=== PATIENT | female | born 1995 | race Caucasian/White ===

== ENCOUNTER 2024-04-08 14:39 | Inpatient (IN) | payer OTHER, SELFPAY ==
[2024-04-08] VITALS (10 sets, daily range): BP systolic 104–135; BP diastolic 49–80; PULSE 71–116; RESP 16–20; TEMP 36.1–36.9; O2SAT 92–100; BMI 28.0
--- NOTE | 2024-04-08 14:42 | ED.GENADULT ---
HPI - General Adult General Chief complaint: General Medical Stated complaint: low hemoglobin Time Seen by Provider: 04/08/24 15:58 Source: patient Mode of arrival: ambulatory Limitations: no limitations History of Present Illness ED Provider: Dr. Essence Agee HPI narrative: Patient comes to the emergency room complaining of dizziness, multiple syncopal episodes within the last couple of weeks due to anemia. Patient states that about a month ago, the 1st week of March, patient had similar symptoms, was seen at [facility] , patient states she had a colonoscopy done, diagnosed with internal hemorrhoids. Patient states that approximately 2 weeks ago, patient had a hemoglobin of 6.3, receive 1 unit of blood, then patient left AMA since she did not want to stay in the hospital. Now patient presents with the same symptoms. Patient admits that she has been having ongoing rectal bleeding. Related Data Allergies Allergy/AdvReac Type Severity Reaction Status Date / Time No Known Allergies Allergy Verified 04/08/24 14:44 Review of Systems Review of Systems: Constitutional : No Weight loss, No Fever, No Chills, No Night Sweats, No Fatigue, No Malaise ENT/Mouth : No Hearing loss, No Ear Pain, No Nasal Congestion, No Sinus Pain, No Hoarseness, No sore throat, No Rhinorrhea, No Swallowing Difficulty Eyes: No Eye Pain, No Swelling, No Redness, No Foreign Body, No Discharge, No Vision Changes Cardiovascular : No Chest Pain, No SOB, complaining of dyspnea on exertion, palpitations, syncopal episode with exertion Respiratory : No Cough, No Sputum, No Wheezing, No Smoke Exposure, No Dyspnea Gastrointestinal : No Nausea, No Vomiting, No Diarrhea, No Constipation, No abdominal Pain, complaining of rectal bleeding for several months Genitourinary : no irregular bleeding, No Dysuria, No Urinary Frequency, No Hematuria, No Urinary Incontinence, No Urgency, No Flank Pain, No Urinary Flow Changes, No Hesitancy Musculoskeletal : No joint pain, No Myalgias, No Joint Swelling Skin : No Skin Lesions, No rash Neuro : No Weakness, No Numbness, No Paresthesias, No Loss of Consciousness, No Dizziness, No Headache Psych : No Anxiety/Panic, No Depression, No SI/HI/AH/VH, No Social Issues, Heme/Lymph: No Bruising, No Bleeding,No Lymphadenopathy Endocrine : No Polyuria, No Polydipsia, No Temperature Intolerance PMFSH Social History Social History Advance Directives: No Advance Directives Information Provided: No Physical Exam ED Vital Signs: Vital Signs - 24 hr 04/08/24 14:42 04/08/24 16:21 Temperature 98 F Pulse Rate 116 H 87 Respiratory Rate 19 16 Blood Pressure 117/61 118/57 L Pulse Oximetry 100 100 Oxygen Delivery Method Room Air Room Air BMI result Body Mass Index 28.0 Const Other: Appearance: Alert. Oriented X3. No acute distress. Eyes: Pupils equal, round and reactive to light. ENT: Pharynx normal. Neck: Normal inspection. Neck supple. No lymph nodes noted. No crepitus CVS: Normal heart rate and rhythm. Pulses normal. Normal S1 and S2 Respiratory: No respiratory distress. Breath sounds normal. No Wheezing. No rales Abdomen: Soft and nontender. No rigidity. No distention. Skin: Skin warm and dry. Pale Normal skin turgor. Extremities: No lower extremity edema. No Lacerations. No Rash Neuro: Oriented X 3. No motor deficit. No sensory deficit. Moving all extremities. No slurred speech. CN 2 through 12 grossly intact Psych: calm, cooperative, normal affect Course Course Course Narrative: This is an RME: Additional HPI, ROS, PE not included below will be deferred to primary provider. RME assessment and note performed by: Eli Jack PA-C This is a 89-[id number]-female, with a hx of bleeding hemorrhoids, presenting to the ER with a complaint of dizziness, syncope, palpitations. Reporting that since January she has had problems with hemoglobin count due to internal bleeding hemorhoids. She has had 2 blood transfusions in the last month on march 12 and march 27. Plan: Labs, EKG, further ER evaluation needed. Critical lab of hemoglobin hematocrit at 5.6/18.2. Discussed with my attending physician, Dr. Yap, patient will be brought back, 2 units of PRBC ordered. Medical Decision Making Medical Decision Making MDM Narrative: -my interpretation of labs, hemoglobin 5.6, hematocrit 18.2, lower than 2 weeks ago when she was seen at [facility]. Patient has ongoing rectal bleeding. -concerning that patient has had multiple syncopal episodes. Discussed with the patient that last time that she was in [facility] she lived against medical advice, patient states that this time she feels very sick and is agreeable to stay for the course of the treatment -I discussed the patient with Dr. Green from General surgery, I was asked to contact GI, I spoke with Dr. Andrews who referred me back to General surgery. -I discussed the patient with Dr. Segura from the Medicine team. Patient will be admitted to be treated for the anemia. They will get a consult for General surgery with either Dr. Mann or Dr. Crowder. Also, considering a consult with IR for possible embolization. -the above-mentioned was discussed with the patient, agreeable with plan. -I discussed with the patient the risks versus benefits of a blood transfusion, patient states that she has had plenty of blood transfusions within the last month, agreeable to proceed with the transfusion. Consent signed -at time of admission, vitals stable, blood pressure 118/57, heart rate 87, temperature 98 degrees F, oxygen saturation 100% on room air. Patient awake and alert Differential Diagnosis Differential Diagnoses: The differential diagnosis associated with the presentation includes (Blood loss anemia, iron deficiency) Admission/Observation Consideration of admission/observation: Escalation of care including admission/observation considered Consult Healthcare Provider Management of the patient was discussed with: Hospitalist and Seed Specialist Lab Data MDM Lab Attestation statement: I reviewed the patient's lab results. 04/08/24 14:50 04/08/24 14:50 Labs: Lab Results 04/08/24 Range/Units 14:50 WBC 7.2 (4.8-10.8) X10*3/uL RBC 2.29 L (4.20-5.50) X10*6/uL Hgb 5.6 L* (12.0-16.0) g/dl Hct 18.2 L* (37.0-47.0) % MCV 79.5 L (80.0-98.0) fL MCH 24.5 L (27.0-33.0) pg MCHC 30.8 L (31.0-35.0) g/dl RDW 17.7 H (11.0-16.0) % Plt Count 428 H (160-400) X10*3/uL MPV 10.3 (9.4-12.3) fL Immature Gran % (Auto) 0.4 (0.0-0.4) % Neut % (Auto) 63.3 (45-73) % Lymph % (Auto) 31.1 (20-40) % [place] % (Auto) 4.2 (2-11) % Eos % (Auto) 0.7 (0-4) % Baso % (Auto) 0.3 (0-2) % Lymph # (Auto) 2.2 (1.2-4.9) X10*3/uL [place] # (Auto) 0.3 (0.1-1.2) X10*3/uL Eos # (Auto) 0.1 (0.0-0.4) X10*3/uL Baso # (Auto) 0.0 (0.0-0.2) X10*3/uL Abs Immat Gran (auto) 0.03 (0.00-0.03) X10*3/uL Absolute Neuts (auto) 4.6 (2.0-8.3) x10*3/uL Absolute Nucleated RBC 0.000 (0.0-0.012) X10*3/uL Nucleated RBC % (auto) 0.0 (0.0-0.2) /100WBC PT 12.9 (11.1-13.3) SEC INR 1.1 (0.9-1.1) APTT 26.7 (26.0-36.8) SEC Sodium 139 (135-145) mmol/L Potassium 4.0 (3.3-5.1) mmol/L Chloride 110 H (96-108) mmol/L Carbon Dioxide 21 L (22-29) mmol/L Anion Gap 12 (12-20) BUN 14 (9-16) mg/dL Creatinine 0.78 (0.5-1.4) mg/dL Estim Creat Clear Calc 109.6 Estimated GFR > 60 Random Glucose 102 (60-115) mg/dL Calcium 9.6 (8.4-10.2) mg/dL Magnesium 1.9 (1.6-2.6) mg/dL Total Bilirubin 0.2 (0.0-1.0) mg/dL Direct Bilirubin < 0.2 (0.0-0.5) mg/dL AST 9 (5-31) U/L ALT 8 (0-31) U/L Alkaline Phosphatase 59 (39-117) U/L Troponin I High Sens < 2.7 (<3.5-17.0) ng/L Total Protein 7.1 (6.5-8.0) g/dL Albumin 4.5 (3.5-5.0) g/dL Blood Type O Positive Antibody Screen NEGATIVE Crossmatch See Detail Independent Interpretation I performed an independent interpretation of an: EKG (Interpretation of EKG: Sinus tachycardia, heart rate 103, no ST segment depression or elevation, no T-wave inversion, QTC 419) Critical Care Time Critical Care Time Critical Care Time: Yes Total Critical Care Time: 75 Attestation: I have personally provided critical care time. Time includes review of lab data, radiology results, discussion with consultants, and monitoring for potential decompensation. Intervention performed as documented. Discharge Plan Discharge Clinical Impression: ABLA (acute blood loss anemia), Hemorrhoids, internal Patient Disposition: Admitted As Inpatient Print Language: Gambian
--- NOTE | 2024-04-08 14:51 | ECG_ITS ---
Test Reason : SYNCOPE, PALPITATIONS Blood Pressure : / mmHG Vent. Rate : 103 BPM Atrial Rate : 103 BPM P-R Int : 144 ms QRS Dur : 076 ms QT Int : 320 ms P-R-T Axes : 070 045 039 degrees QTc Int : 419 ms Sinus tachycardia Otherwise normal ECG No previous ECGs available Referred By: Eli Jack Electronically Signed By:LAYA ROSARIO
[2024-04-08 14:57] LABS: MANUAL DIFF FLAG NO
[2024-04-08 15:01] LABS: Basophils Percent Auto 0.3 % (0-2); Eosinophils Absolute Auto 0.1 X10*3/uL (0.0-0.4); Eosinophils Percent Auto 0.7 % (0-4); Imm Gran Abs Auto 0.03 X10*3/uL (0.00-0.03); Imm Gran Pct Auto 0.4 % (0.0-0.4); Lymphocytes Absolute Auto 2.2 X10*3/uL (1.2-4.9); Lymphocytes Percent Auto 31.1 % (20-40); Mean Corpuscular HGB Conc 30.8 g/dl (31.0-35.0); Mean Corpuscular Hemoglobin 24.5 pg (27.0-33.0); Mean Corpuscular Volume 79.5 fL (80.0-98.0); Mean Platelet Volume 10.3 fL (9.4-12.3); Monocytes Absolute Auto 0.3 X10*3/uL (0.1-1.2); Monocytes Percent Auto 4.2 % (2-11); Neutrophils Absolute Auto 4.6 x10*3/uL (2.0-8.3); Neutrophils Percent Auto 63.3 % (45-73); Platelet Count 428 X10*3/uL (160-400); Red Blood Count 2.29 X10*6/uL (4.20-5.50); Red Cell Distribution Width 17.7 % (11.0-16.0); White Blood Count 7.2 X10*3/uL (4.8-10.8)
[2024-04-08 15:08] LABS: INTERNATIONAL NORM RATIO 1.1 (0.9-1.1); Prothrombin Time 12.9 SEC (11.1-13.3)
[2024-04-08 15:10] LABS: Hematocrit 18.2 % (37.0-47.0); Hemoglobin 5.6 g/dl (12.0-16.0)
[2024-04-08 15:11] LABS: Partial Thromboplastin Time 26.7 SEC (26.0-36.8)
[2024-04-08 15:14] LABS: Alanine Aminotransferase 8 U/L (0-31); Albumin Level 4.5 g/dL (3.5-5.0); Alkaline Phosphatase 59 U/L (39-117); Anion Gap 12 (12-20); Aspartate Amino Transferase 9 U/L (5-31); Bilirubin Direct < 0.2 mg/dL (0.0-0.5); Bilirubin Total 0.2 mg/dL (0.0-1.0); Blood Urea Nitrogen 14 mg/dL (9-16); Calcium 9.6 mg/dL (8.4-10.2); Carbon Dioxide 21 mmol/L (22-29); Chloride 110 mmol/L (96-108); Creatinine Clr Calc Pharmacy 109.6; Estimated Glomerular Filt Rate > 60; Glucose Random 102 mg/dL (60-115); Magnesium 1.9 mg/dL (1.6-2.6); Sodium 139 mmol/L (135-145); Total Protein 7.1 g/dL (6.5-8.0)
[2024-04-08 16:51] LABS: Troponin-I High Sensitivity < 2.7 ng/L (<3.5-17.0)
--- NOTE | 2024-04-08 16:52 | PC.NURSE ---
18g IV Access established in left AC. Ready for transfusion. Consent for blood transfusion signed. Plan to receive 2 units of RBCs for low Hemoglobin/Hematocrit. Dr. Agee spoke with patient.
--- NOTE | 2024-04-08 17:14 | P.HPHOSP_ITS ---
History of Present Illness Date of Service: 04/08/24 Chief Complaint: Syncope 28-year-old female patient recently diagnosed to have bleeding hemorrhoids, with no other significant past medical history , as per patient she noted to have rectal bleed since January, and was admitted to [facility], for anemia, received 2 units of packed RBC, was evaluated by Gastroenterology and surgery underwent colonoscopy and was diagnosed to have internal and external hemorrhoids, and was recommended outpatient follow-up with General surgery in June, patient was discharged home on stool softeners, iron supplement and rectal cream, however in March patient noted to have recurrent episodes of rectal bleeding was re-evaluated at [facility] received 2 units of packed RBC, and again on March 27 received 1 unit of packed RBC , patient left the hospital AMA, today patient presented to emergency room due to lightheadedness, nausea, palpitations, shortness of breath and syncopal episode witnessed by boyfriend and daughter, patient denied head injury, she continued to have on and off rectal bleed without associated abdominal pain, constipation or straining her stools are soft since she is using stool softeners, denies pain, no fevers, no chills, no nauseano vomitingtolerating dietno other acute issues. In ED patient noted to have a hemoglobin of 5.6 hematocrit 18.2 platelet count of 428, low MCV, INR 1.1 sodium 139, bicarb 21 stable renal function, iron studies consistent with iron deficiency with iron 7, saturation 2% and TIBC 357, ferritin pending, normal albumin and total protein, 2 units of packed RBC ordered in ED. Patient being admitted to [facility] with a diagnosis of acute blood loss anemia. Review of Systems 2 Review of Systems: General no headache ,no fever chills. Neuro lightheadedness and syncope CVS no chest pain, +palpitation and shortness of breath. Respiratory no cough Gastrointestinal no nausea no vomiting, no abdominal pain Musculoskeletal no pain no urgency, no frequency Skin no rash All other system reviewed and negative PMFSH Pertinent family history: Parents are alive mother has lupus, father has diabetes, no family history of colon cancer Social History Household Members: Significant Other and Children Do you presently have visiting nurse or other home services: No Patient Tobacco Use Status: Never used Tobacco Use of substances other than those prescribed or required for medical reasons: No Do you feel safe in your current relationship?: Yes Advance Directives: No Advance Directives Information Provided: No Do you have a plan to hurt others: No Plan Nutrition Risks: No Nutritional Risk Patient : No Meds Allergies Allergy/AdvReac Type Severity Reaction Status Date / Time No Known Allergies Allergy Verified 04/08/24 14:44 Home Medications ?Medication ?Instructions ?Recorded ?Confirmed ?Last Taken ?Type docusate sodium 100 mg capsule 100 mg PO BID 04/08/24 04/08/24 04/07/24 History ferrous sulfate 325 mg (65 mg 325 mg PO Q48H 04/08/24 04/08/24 04/07/24 History iron) tablet,delayed release medroxyprogesterone 150 mg/mL 150 mg IM [id number] 04/08/24 04/08/24 01/14/24 History intramuscular suspension polyethylene glycol 3350 17 17 g PO BID PRN Constipation 04/08/24 04/08/24 Unknown History gram/dose oral powder Physical Exam 2 Vital Signs and Narrative: Vital Signs: Last Vital Signs Temp 98 F 04/08/24 14:42 Pulse 87 04/08/24 16:21 Resp 16 04/08/24 16:21 BP 118/57 L 04/08/24 16:21 Pulse Ox 100 04/08/24 16:21 O2 Del Method Room Air 04/08/24 16:21 BMI result Body Mass Index 28.0 Const: Other: General awake alert x3, in no acute distress. HEENT anicteric sclera, pale conjunctiva Neck supple no JVD. CVS regular rate rhythm, Respiratory lungs clear to auscultation, no respiratory distress, no wheeze, no rhonchi. Gastrointestinal abdomen soft, non tender, bowel sounds audible, no guarding, no rigidity. Extremities no edema. Neuro non focal Skin no rash/pallor Psych appropriate affect Results Labs 04/08/24 14:50 04/08/24 14:50 Labs: Laboratory Results - last 24 hr 04/08/24 14:50 MCV 79.5 L MCH 24.5 L MCHC 30.8 L RDW 17.7 H Plt Count 428 H MPV 10.3 Immature Gran % (Auto) 0.4 Neut % (Auto) 63.3 Lymph % (Auto) 31.1 [place] % (Auto) 4.2 Eos % (Auto) 0.7 Baso % (Auto) 0.3 Lymph # (Auto) 2.2 [place] # (Auto) 0.3 Eos # (Auto) 0.1 Baso # (Auto) 0.0 Abs Immat Gran (auto) 0.03 Absolute Neuts (auto) 4.6 Absolute Nucleated RBC 0.000 Nucleated RBC % (auto) 0.0 PT 12.9 INR 1.1 APTT 26.7 Anion Gap 12 Estim Creat Clear Calc 109.6 Estimated GFR > 60 Random Glucose 102 Calcium 9.6 Magnesium 1.9 Total Bilirubin 0.2 Direct Bilirubin < 0.2 AST 9 ALT 8 Alkaline Phosphatase 59 Troponin I High Sens < 2.7 Total Protein 7.1 Albumin 4.5 Blood Type O Positive Antibody Screen NEGATIVE Crossmatch See Detail Assessment and Plan (1) Hemorrhoids, internal: Status: Acute (2) ABLA (acute blood loss anemia): Status: Acute Plan 28-year-old female with history of bleeding hemorrhoids presented with syncopal episode and rectal bleed. Syncope likely due to anemia, tele monitor showed no arrhythmia, EKG showed sinus tachycardia, otherwise no acute ischemic change, check orthostatic BP , monitor in telemetry and treat anemia. Acute blood loss anemia due to rectal bleed, recently diagnosed to have internal and external hemorrhoids will transfuse 2 units of packed RBC, follow CBC avoid constipation, add stool softeners, recommend high-fiber diet, Consult general surgery for possible banding procedure versus embolization by IR. Iron studies consistent with iron deficiency due to acute blood loss, will place on iron supplements/give IV iron infusion. Follow CBC DVT prophylaxis low risk , avoid blood thinners, placed on compression boots Full code In my clinical judgment patient need two night inpatient hospitalization for management of acute blood loss anemia, requiring blood transfusion and expert consultation. Quality Stroke Does the patient have a stroke diagnosis?: No VTE Prior VTE?: No VTE Risk Level:: Medical - low VTE Device Contraindication: N/A - Device Ordered VTE Drug Contraindication: Treatment Not Indicated
[2024-04-08 17:31] LABS: Iron 7 mcg/dL (30-160); Percent Iron Saturation 2 % (15-50); Total Iron Binding Capacity 357 mcg/dL (228-428); Unsaturated Iron Binding 350 ug/dL
[2024-04-08 17:45] LABS: Ferritin 3 ng/mL (10-122)
--- NOTE | 2024-04-08 17:47 | PHA.MEDREC ---
Pharmacy Consult ? Medication Reconciliation Pharmacy has completed the medication reconciliation. Spoke to patient and confirmed medication list.
[2024-04-08] MEDS: Docusate Sodium 100 MG CAPSULE PO (22:02)
[2024-04-09] VITALS: BP 106/70; PULSE 82; RESP 18; TEMP 36.4; O2SAT 100
[2024-04-09 01:02] VITALS: BP 130/71; PULSE 74; RESP 18; TEMP 36.8; O2SAT 100
[2024-04-09 01:17] VITALS: BP 130/71; PULSE 76; RESP 18; TEMP 36.8
--- NOTE | 2024-04-09 11:32 | P.DS_ITS ---
DS: Providers Provider Date of Service: 04/09/24 Date of admission: 04/08/24 17:21 Primary care physician: Mer Sánchez MD Consults: 04/08/24 18:02 Consult to General Surgery Routine Consulting Provider: Renee Green Reason for consultation: internal hemorrhoids/anemia Has provider been notified: No DS: Diagnosis Discharge Diagnosis (1) Hemorrhoids, internal: Status: Acute (2) ABLA (acute blood loss anemia): Status: Acute DS: Summary Hospital Course Hospital Course: History of presenting illness: Date of Service: 04/08/24 Chief Complaint: Syncope 28-year-old female patient recently diagnosed to have bleeding hemorrhoids, with no other significant past medical history , as per patient she noted to have rectal bleed since January, and was admitted to [facility], for anemia, received 2 units of packed RBC, was evaluated by Gastroenterology and surgery underwent colonoscopy and was diagnosed to have internal and external hemorrhoids, and was recommended outpatient follow-up with General surgery in June, patient was discharged home on stool softeners, iron supplement and rectal cream, however in March patient noted to have recurrent episodes of rectal bleeding was re-evaluated at [facility] received 2 units of packed RBC, and again on March 27 received 1 unit of packed RBC , patient left the hospital AMA, today patient presented to emergency room due to lightheadedness, nausea, palpitations, shortness of breath and syncopal episode witnessed by boyfriend and daughter, patient denied head injury, she continued to have on and off rectal bleed without associated abdominal pain, constipation or straining her stools are soft since she is using stool softeners, denies pain, no fevers, no chills, no nauseano vomitingtolerating dietno other acute issues. In ED patient noted to have a hemoglobin of 5.6 hematocrit 18.2 platelet count of 428, low MCV, INR 1.1 sodium 139, bicarb 21 stable renal function, iron studies consistent with iron deficiency with iron 7, saturation 2% and TIBC 357, ferritin pending, normal albumin and total protein, 2 units of packed RBC ordered in ED. Patient being admitted to [facility] with a diagnosis of acute blood loss anemia. Hospital course: 28-year-old female with history of bleeding hemorrhoids presented with syncopal episode and rectal bleed, was noted to have hematocrit of 18.2 and hemoglobin of 5.6 , patient admitted to medical floor with a diagnosis of acute blood loss anemia due to hemorrhoid bleed and received 2 units of RBCs, tele monitor showed no arrhythmia, EKG showed sinus tachycardia, otherwise no acute ischemic changes, plan was to obtain surgical consultation for possible banding procedure, and treat her with IV iron, due to low iron saturation but however after receiving blood transfusion patient decided to leave against medical advice, and refused to have repeat lab draws patient has left [facility] AMA twice recently ,she has an appointment with surgeon in June for follow-up, she was informed about risk of recurrent syncopal episodes and persistent symptoms of lightheadedness and dizziness was persistent bleed she sh owed understanding but chose to leave. She was recommended to continue iron supplements and follow-up with PCP and General surgery. Discharge diagnosis Syncope Acute blood loss anemia Iron-deficiency anemia Internal hemorrhoids Time Attestation Discharge Coordination Time (in mins): 32 Quality: Safe Use of Opioids Does Pt have an Active Cancer Diagnosis on the Problem List?: No Quality: Stroke Does the patient have a stroke diagnosis?: No Physical Exam Vital Signs: Vital Signs: Last Vital Signs Temp 98.2 F 04/09/24 01:17 Pulse 76 04/09/24 01:17 Resp 18 04/09/24 01:17 BP 130/71 04/09/24 01:17 Pulse Ox 100 04/09/24 01:02 O2 Del Method Room Air 04/09/24 01:02 BMI result Body Mass Index 28.0 Const: Other: General awake alert x3, in no acute distress. HEENT anicteric sclera Neck supple no JVD. CVS regular rate rhythm, Respiratory lungs clear to auscultation, no respiratory distress, no wheeze, no rhonchi. Gastrointestinal abdomen soft, non tender, bowel sounds audible, no guarding, no rigidity. Extremities no edema. Neuro non focal Psych appropriate affect DS: Data Data Completed and Pending Labs on day of discharge: Laboratory Results - last 24 hr 04/08/24 14:50 WBC 7.2 RBC 2.29 L Hgb 5.6 L* Hct 18.2 L* MCV 79.5 L MCH 24.5 L MCHC 30.8 L RDW 17.7 H Plt Count 428 H MPV 10.3 Immature Gran % (Auto) 0.4 Neut % (Auto) 63.3 Lymph % (Auto) 31.1 [place] % (Auto) 4.2 Eos % (Auto) 0.7 Baso % (Auto) 0.3 Lymph # (Auto) 2.2 [place] # (Auto) 0.3 Eos # (Auto) 0.1 Baso # (Auto) 0.0 Abs Immat Gran (auto) 0.03 Absolute Neuts (auto) 4.6 Absolute Nucleated RBC 0.000 Nucleated RBC % (auto) 0.0 PT 12.9 INR 1.1 APTT 26.7 Sodium 139 Potassium 4.0 Chloride 110 H Carbon Dioxide 21 L Anion Gap 12 BUN 14 Creatinine 0.78 Estim Creat Clear Calc 109.6 Estimated GFR > 60 Random Glucose 102 Calcium 9.6 Magnesium 1.9 Iron 7 L TIBC 357 % Saturation 2 L Unsat Iron Binding 350 Ferritin 3 L Total Bilirubin 0.2 Direct Bilirubin < 0.2 AST 9 ALT 8 Alkaline Phosphatase 59 Troponin I High Sens < 2.7 Total Protein 7.1 Albumin 4.5 Blood Type O Positive Antibody Screen NEGATIVE Crossmatch See Detail Discharge Plan Discharge Patient Disposition: Left Against Medical Advice Discharge Diagnosis: Syncope Acute blood loss anemia Acute rectal bleed Iron deficiency anemia Referrals: Mer Sánchez MD [Primary Care Provider] - 1 Week Discharge Medications: No Action docusate sodium 100 mg capsule 100 mg PO BID polyethylene glycol 3350 17 gram/dose powder 17 g PO BID PRN (Reason: Constipation) ferrous sulfate 325 mg (65 mg iron) tablet,delayed release (DR/EC) 325 mg PO Q48H medroxyprogesterone 150 mg/mL suspension 150 mg IM [id number] Rx Instructions: DUE ON 04/15/24 Discharge Orders: Discharge Order (Routine); Ordered 04/09/24 Ordered By: Jordin Segura Diet: Advance to usual diet Activity on Discharge: As tolerated Print Language: Palestinian Care Plan Goals: Internal hemorrhoidal bleed/continue stool softeners continue iron supplements avoid constipation and strain Health Concerns: Iron deficiency anemia Plan of Treatment: Outpatient follow-up with primary care physician and General surgery Assessment: As above Discharge Date/Time: 04/09/24 01:15
== END 2024-04-09 01:15 | disposition left against medical advice (07) | DRG 663 ==
LOC: HO.ED 17:09 → HO.EDOVER 17:22 → HO.IMC 17:37
PROVIDERS: Physician Assistant Medical; Admitting Provider Hospitalist; Emergency Provider Emergency Medicine; PCP Hospitalist; Visit Provider Hospitalist
DX: D62 Acute posthemorrhagic anemia (principal); K64.8 Other hemorrhoids; Z79.899 Other long term (current) drug therapy
CPT/HCPCS: 36415; 80048; 80076; 82728; 83540; 83735; 84484; 85025; 85610; 85730; 86850; 86900; 86901; 86920; 93005; 99285; P9016

== ENCOUNTER → 2024-04-08 14:51 | Outpatient (BNV) | payer OTHER, SELFPAY | PROVIDERS: Admitting Provider Hospitalist; Emergency Provider Emergency Medicine; PCP Hospitalist; Visit Provider Internal Medicine | DX: R00.0 Tachycardia, unspecified (principal); R55 Syncope and collapse | CPT/HCPCS: 93010 ==

== ENCOUNTER → 2024-04-08 17:21 | Outpatient (BNV) | payer OTHER, SELFPAY | PROVIDERS: Admitting Provider Hospitalist; Emergency Provider Emergency Medicine; PCP Hospitalist; Visit Provider Hospitalist | DX: K64.8 Other hemorrhoids (principal); D62 Acute posthemorrhagic anemia; R55 Syncope and collapse; Z53.29 Procedure and treatment not carried out because of patient's decision for other reasons | CPT/HCPCS: 99223; 99239 ==